=== PATIENT | female | born 1950 | race Two or more races ===

== ENCOUNTER 2018-02-21 14:55 | Outpatient (CLI) | payer OTHER ==
[~2018-02-21 14:55] MED LIST: ATENOLOL25 MG; HYDROCHLOROTHIA25 MG; LISINOPRIL2.5 MG
== END 2018-02-21 15:04 | disposition home or self-care (01) ==
LOC: NUCLEAR 14:55
DX: M85.89 Other specified disorders of bone density and structure, multiple sites (principal); M81.0 Age-related osteoporosis without current pathological fracture; Z13.820 Encounter for screening for osteoporosis

== ENCOUNTER 2018-09-17 09:18 | Outpatient (CLI) | payer OTHER | END 2018-09-17 09:27 | disposition home or self-care (01) | LOC: RAD 09:18 | DX: M54.5 Low back pain (principal) ==

== ENCOUNTER 2019-01-13 14:25 | Emergency (ER) | payer OTHER ==
[~2019-01-13] VITALS: Ht 160 cm; Wt 70.8 kg
[2019-01-13] MEDS ORDERED: AMLODIPINE BESYL5 MG (15:08)
== END 2019-01-13 15:56 | disposition home or self-care (01) ==
LOC: ER 14:25
DX: S40.012A Contusion of left shoulder, initial encounter (principal); S60.221A Contusion of right hand, initial encounter; S20.222A Contusion of left back wall of thorax, initial encounter; S60.011A Contusion of right thumb without damage to nail, initial encounter; Y04.2XXA Assault by strike against or bumped into by another person, initial encounter; Y93.89 Activity, other specified; Y92.018 Other place in single-family (private) house as the place of occurrence of the external cause; Y99.8 Other external cause status

== ENCOUNTER → 2019-02-16 | Outpatient (CLI) | payer OTHER ==
[~2019-02-16] MED LIST changes: +AMLODIPINE BESYL5 MG
== END | disposition home or self-care (01) ==
LOC: MAMO-SONO 13:56
DX: Z12.31 Encounter for screening mammogram for malignant neoplasm of breast (principal); Z87.898 Personal history of other specified conditions; N60.11 Diffuse cystic mastopathy of right breast; N60.12 Diffuse cystic mastopathy of left breast

== ENCOUNTER 2020-01-17 03:26 | Emergency (ER) | payer OTHER ==
[~2020-01-17] VITALS: Ht 160 cm; Wt 83.5 kg
[2020-01-17] MEDS ORDERED: PEPCID40 MG PO (08:19)
== END 2020-01-17 08:39 | disposition home or self-care (01) ==
LOC: ER 03:26
DX: K29.60 Other gastritis without bleeding (principal)

== ENCOUNTER 2020-03-18 13:45 | Outpatient (CLI) | payer OTHER ==
[~2020-03-18 13:45] MED LIST changes: +PEPCID40 MG PO
== END 2020-03-18 14:21 | disposition home or self-care (01) ==
LOC: MAMO-SONO 13:45
DX: Z12.31 Encounter for screening mammogram for malignant neoplasm of breast (principal); N64.59 Other signs and symptoms in breast

== ENCOUNTER 2021-03-05 09:17 | Outpatient (CLI) | payer OTHER | END 2021-03-05 09:26 | disposition home or self-care (01) | LOC: SONOGRAMA 09:17 | PROVIDERS: ATTEND Internal Medicine Gastroenterology | DX: R10.13 Epigastric pain (principal); K80.80 Other cholelithiasis without obstruction ==

== ENCOUNTER 2021-05-15 13:25 | Outpatient (CLI) | payer OTHER | END 2021-05-15 14:01 | disposition home or self-care (01) | LOC: MAMO-SONO 13:25 | PROVIDERS: ATTEND General Practice | DX: N64.59 Other signs and symptoms in breast (principal) ==

== ENCOUNTER 2022-01-06 08:14 | Outpatient (CLI) | payer OTHER | END 2022-01-06 08:20 | disposition home or self-care (01) | LOC: RAD 08:14 | PROVIDERS: ATTEND General Practice | DX: M54.2 Cervicalgia (principal) ==

== ENCOUNTER 2022-06-18 13:03 | Outpatient (CLI) | payer OTHER | END 2022-06-18 13:13 | disposition home or self-care (01) | LOC: MAMO-SONO 13:03 | DX: Z12.31 Encounter for screening mammogram for malignant neoplasm of breast (principal); Z13.820 Encounter for screening for osteoporosis ==

== ENCOUNTER 2022-06-18 14:20 | Outpatient (CLI) | payer OTHER | END 2022-06-18 14:21 | disposition home or self-care (01) | LOC: NUCLEAR 14:20 | PROVIDERS: ATTEND General Practice | DX: Z13.820 Encounter for screening for osteoporosis (principal) ==

== ENCOUNTER 2022-08-11 11:09 | Outpatient (CLI) | payer OTHER | END 2022-08-11 11:20 | disposition home or self-care (01) | LOC: MRI 11:09 | PROVIDERS: ATTEND Psychiatry & Neurology Neurology | DX: G31.84 Mild cognitive impairment of uncertain or unknown etiology (principal) | CPT/HCPCS: 70551 ==

== ENCOUNTER 2023-05-06 09:57 | Outpatient (CLI) | payer OTHER | END 2023-05-06 10:08 | disposition home or self-care (01) | LOC: RAD 09:57 | DX: M25.561 Pain in right knee (principal) ==

== ENCOUNTER 2024-06-15 08:48 | Outpatient (CLI) | payer OTHER | END 2024-06-15 08:58 | disposition home or self-care (01) | LOC: RAD 08:48 | PROVIDERS: ATTEND Orthopaedic Surgery | DX: M25.562 Pain in left knee (principal); M25.561 Pain in right knee; M79.671 Pain in right foot; M25.571 Pain in right ankle and joints of right foot ==

== ENCOUNTER 2024-09-29 08:58 | Outpatient (CLI) | payer OTHER | END 2024-09-29 09:04 | disposition home or self-care (01) | LOC: RAD 08:58 | PROVIDERS: ATTEND General Practice | DX: I10 Essential (primary) hypertension (principal); R06.02 Shortness of breath ==

== ENCOUNTER 2025-01-11 04:22 | Emergency (ER) | payer OTHER ==
[~2025-01-11] VITALS: Ht 160 cm; Wt 79.4 kg
[2025-01-11 04:35] VITALS: BP 138/84; O2SAT 97
[2025-01-11] MEDS ORDERED: FAMOTIDINE/PF 20 MG/2 ML VIAL IV PUSH STA (06:00)
[2025-01-11] MEDS ORDERED: 0.9 % SODIUM CHLORIDE 1,000 ML IV ONE (06:00)
[2025-01-11] MEDS ORDERED: ONDANSETRON HCL 2 MG/ML VIAL IV STA (06:00)
[2025-01-11] MEDS ORDERED: ONDANSETRON HCL 2 MG/ML VIAL ONE (06:08)
[2025-01-11] MEDS ORDERED: FAMOTIDINE/PF 20 MG/2 ML VIAL ONE (06:08)
[2025-01-11 07:09] LABS: BASO % 0.4 % (0.1-1.2); EOS # 0.08 (0.04-0.54); EOS % 0.9 % (0.7-7.0); LYMPH # 3.05 (1.18-3.74); LYMPH % 35.7 % (19.3-53.1); MEAN PLATELET VOLUME 12.70 fl (9.4-12.4); MONO # 0.70 (0.24-0.82); MONO % 8.2 % (4.7-12.5); NEUT # 4.67 (1.56-6.13); NEUT % 54.6 % (34.0-71.1); RED CELL DISTRIBUTION WIDTH 14.4 % (11.6-14.4)
[2025-01-11 07:31] LABS: ALT/SGPT 23.0 U/L (12-78); AST/SGOT 18.0 U/L (15-37); BILIRUBIN TOTAL 0.92 mg/dL (0.3-1.2); BUN CREA RATIO 21.0 (7.0-25.0); CREATININE SERUM 0.92 mg/dL (0.55-1.02); GFR 60.01; GLOBULINA 3.5 G/DL (2.4-3.5); GLUCOSE FASTING 132.0 mg/dL (65-100); OSMOLALITY SERUM 289.0 MOSM/KG (275-295)
[2025-01-11] MEDS ORDERED: POTASSIUM CHLORIDE/D5-0.9%NACL 1,000 ML IV STA (07:42)
[2025-01-11 14:41] LABS: BUN CREA RATIO 21.0 (7.0-25.0); CREATININE SERUM 0.68 mg/dL (0.55-1.02); GFR 85.05; GLUCOSE FASTING 130.0 mg/dL (65-100); OSMOLALITY SERUM 289.0 MOSM/KG (275-295)
== END 2025-01-11 15:48 | disposition home or self-care (01) ==
LOC: ER 04:22
PROVIDERS: General Practice
DX: R10.13 Epigastric pain (principal); A05.9 Bacterial foodborne intoxication, unspecified; I10 Essential (primary) hypertension
CPT/HCPCS: 36415; 93005; 96365; 96366; 99283; J2405; J3490; J7030